=== PATIENT | female | born 1990 | race Caucasian/White ===

== ENCOUNTER 2018-03-27 20:15 | Emergency (ER) | payer OTHER ==
[~2018-03-27] VITALS: Ht 162.6 cm; Wt 55.3 kg
[2018-03-27 20:24] VITALS: BP 94/58
--- NOTE | 2018-03-27 20:27 | NUR ---
PT AMBULATORY TO ER LOBBY W/ STEADY GAIT IN STABLE CONDITION.
--- NOTE | 2018-03-27 20:38 | NUR ---
PT TAKEN TO CHAIR C
--- NOTE | 2018-03-27 20:50 | NUR ---
KAYLIE HUERTA EVALUATING PATIENT
--- NOTE | 2018-03-27 20:55 | NUR ---
BIB SELF C/O COUGHING SINCE 03/24 W/GREEN MUCOUS PRODUCTION. AUDIBLE WHEEZING IN LOWER LOBES BILATERALLY AND UPPER RIGHT LOBE.
[2018-03-27 21:05] VITALS: BP 94/58
--- NOTE | 2018-03-27 21:05 | NUR ---
Patient discharged with v/s stable. Written and verbal after care instructions given and explained. Patient alert, oriented and verbalized understanding of instructions. Ambulatory with steady gait. All questions addressed prior to discharge. ID band removed. Patient advised to follow up with PMD. Rx of ALBUTEROL, ZITHROMAX, SUDAFED, AND PREDNISONE given. Patient educated on indication of medication including possible reaction and side effects. Opportunity to ask questions provided and answered.
== END 2018-03-27 21:05 | disposition home or self-care (01) ==
LOC: MED 20:15
DX: J06.9 Acute upper respiratory infection, unspecified (principal); J98.01 Acute bronchospasm
CPT/HCPCS: 99283

== ENCOUNTER 2019-04-25 12:13 | Emergency (ER) | payer OTHER ==
[~2019-04-25] VITALS: Ht 154.9 cm; Wt 48.5 kg
[2019-04-25 12:36] VITALS: BP 112/76
--- NOTE | 2019-04-25 12:40 | NUR ---
PT AMBULATED TO ED [facility]
--- NOTE | 2019-04-25 13:05 | NUR ---
29/F PRESENTS TO ED WITH FAMILY/FRIEND, C/O BL HAND PAIN WITH SWELLING AND MILD ERYTHEMA, STARTED YESTERDAY. REPORTS NOTICING HIVES YESTERDAY WHICH HAS NOW RESOLVED. PT TOOK BENADRYL AND ZYRTEC WITH MILD RELIEF. REPORTS SUBJECTIVE THROAT TIGHTENING, DENIES SOB, NO TONGUE SWELLING. PT AWAKE AND ALERT, SKIN NORMAL COLOR WARM AND DRY, RR EVEN AND UNLABORED. DENIES MED HX OR RX. OTC BENADRYL AND ZYRTEC.
[2019-04-25] MEDS ORDERED: diphenhydrAMINE 50 MG/ML VIAL IM ONE (13:35)
[2019-04-25] MEDS ORDERED: methylPREDNISolone SS 125 MG in WATER STERILE 2 ML IM ONE (13:35)
[2019-04-25] MEDS ORDERED: WATER STERILE 10 ML MC ONE (13:41)
[2019-04-25] MEDS ORDERED: methylPREDNISolone SS 125 MG/2 ML VIAL ONE (13:41)
[2019-04-25 14:15] VITALS: BP 112/76
--- NOTE | 2019-04-25 14:15 | NUR ---
Patient discharged with v/s stable. Written and verbal after care instructions given and explained. Patient alert, oriented and verbalized understanding of instructions. Ambulatory with steady gait. All questions addressed prior to discharge. ID band removed. Patient advised to follow up with PMD. Rx of prednisone, tonya given. Patient educated on indication of medication including possible reaction and side effects. Opportunity to ask questions provided and answered.
== END 2019-04-25 14:13 | disposition home or self-care (01) ==
LOC: MED 12:13
DX: T78.40XA Allergy, unspecified, initial encounter (principal); X58.XXXA Exposure to other specified factors, initial encounter
CPT/HCPCS: 96372; 99283; J1200; J2930